=== PATIENT | female | born 1990 | race Two or more races ===

== ENCOUNTER 2018-08-20 08:46 | Observation (INO) | payer SELFPAY ==
[~2018-08-20] VITALS: Ht 167.6 cm; Wt 104.3 kg
[2018-08-20 09:46] LABS: CLARITY URINE CLEAR (CLEAR); COLOR URINE YELLOW (YELLOW); KETONES URINE NEGATIVE (NEGATIVE); LEUKOCYTE ESTERASE URINE TRACE (NEGATIVE); NITRITE URINE NEGATIVE (NEGATIVE); OCCULT BLOOD URINE 3+ (NEGATIVE); PH URINE 6.5 (4.5-8.0); PROTEIN URINE NEGATIVE (NEGATIVE)
[2018-08-20] MEDS ORDERED: LACTATED RINGERS 1,000 ML IV SCH ×2 (10:15→10:23)
[2018-08-20] MEDS ORDERED: ACETAMINOPHEN 500MG TABLET PO NR (10:15)
[2018-08-20 10:48] LABS: BASOPHILS % 0.5 % (0.0-2.0); EOSINOPHILS % 0.4 % (0.0-5.0); HEMATOCRIT. 37.3 % (36.0-48.0); HEMOGLOBIN. 12.7 g/dL (12.0-16.0); LYMPHOCYTES % 12.4 % (20.0-50.0); MEAN CORPUSCULAR HEMOGLOBIN 29.8 pg (28.0-32.0); MEAN CORPUSCULAR VOLUME 87.7 fL (81.0-99.0); MEAN PLATELET VOLUME 8.4 fl (7.4-10.4); NEUTROPHILS % 82.7 % (40.0-76.0); PLATELET 299 x1000/uL (130-400); RED BLOOD CELL COUNT 4.25 mill/uL (4.2-5.4); RED CELL DISTRIBUTION WIDTH 13.4 % (11.6-14.6)
[2018-08-20] MEDS ORDERED: CEFAZOLIN 2,000 MG in DEXT 5% WATER 100 ML IV NR (13:30)
== END 2018-08-20 14:49 | disposition home or self-care (01) ==
LOC: 8 EST LDRP 08:46
PROVIDERS: ADMIT Obstetrics & Gynecology Obstetrics; ATTEND Obstetrics & Gynecology
DX: O26.892 Other specified pregnancy related conditions, second trimester (principal); R10.9 Unspecified abdominal pain; Z3A.26 26 weeks gestation of pregnancy
CPT/HCPCS: 36415; 76700; 76805; 81003; 85025; 96365; 99281; G0378; J0690; J7060

== ENCOUNTER 2018-08-20 14:06 | Emergency (ER) | payer SELFPAY | END 2018-08-20 16:17 | disposition left against medical advice (07) | LOC: ER 15:22 | DX: Z53.21 Procedure and treatment not carried out due to patient leaving prior to being seen by health care provider (principal) ==